=== PATIENT | female | born 1940 | race Caucasian/White ===

== ENCOUNTER 2022-07-14 14:55 | Emergency (ER) | payer MEDICARE ==
[~2022-07-14] VITALS: Wt 64.0 kg
== END 2022-07-14 19:32 ==
LOC: ED 14:55
DX: A41.89 Other specified sepsis (principal); A41.4 Sepsis due to anaerobes; R65.21 Severe sepsis with septic shock; J96.90 Respiratory failure, unspecified, unspecified whether with hypoxia or hypercapnia; Z88.5 Allergy status to narcotic agent